=== PATIENT | male | born 1995 | race Caucasian/White ===

== ENCOUNTER 2021-06-19 22:24 | Emergency (ER) | payer SELFPAY ==
[~2021-06-19] VITALS: Ht 177.8 cm; Wt 74.8 kg
--- NOTE | 2021-06-19 22:24 | NUR ---
KIMBERLEE LEMONS. TAKEN TO CHAIR A
[2021-06-19 22:25] VITALS: BP 147/93
--- NOTE | 2021-06-19 22:58 | NUR ---
PATIENT [facility]. PATIENT EXAMINED BY . PATIENT MEDICALLY CLEARED AND RELEASED IN CUSTODY IN STABLE CONDITION. ORIGINAL PRE-BOOK FORM GIVEN TO OFFICER ALEX,#[id number] .
== END 2021-06-19 22:58 ==
LOC: MED 22:24
DX: Z02.89 Encounter for other administrative examinations (principal); Z90.49 Acquired absence of other specified parts of digestive tract; V89.2XXA Person injured in unspecified motor-vehicle accident, traffic, initial encounter; Y93.89 Activity, other specified; Y92.89 Other specified places as the place of occurrence of the external cause; Y99.8 Other external cause status
CPT/HCPCS: 99283